=== PATIENT | female | born 1965 | race African-American/Black ===

== ENCOUNTER 2017-05-01 21:04 | Emergency (ER) | payer MEDICARE, OTHER ==
[2017-05-01 21:50] LABS: Bilirubin Negative (Negative); Blood, Urine Negative (Negative); Glucose, Urine (Dipstick) Negative (Negative); Ketone, Urine Negative (Negative); Nitrite Negative (Negative); Protein, Urine (Dipstick) Negative (Neg-Trace); Urobilinogen 0.2 mg/dL (0.2-1.0)
--- NOTE | 2017-05-01 22:12 | CT ---
CT OF HEAD NONCONTRAST 05/01/17 COMPARISON: 11/16/16 CLINICAL HISTORY: Dizziness. FINDINGS: There is no acute intracranial hemorrhage, mass effect, midline shift or ventriculomegaly. Imaged pa ranasal sinuses reveal no acute fluid level. There is chronic appearing dehiscence involving the med ial wall of the left orbit. No depressed calvarial fracture or pneumocephalus. IMPRESSION: No acute intracranial hemorrhage or mass effect. POS: [facility]
[2017-05-01 22:24] LABS: #Eosinphils 0.3 thou/uL (0.0-0.7); #Lymphocytes 2.2 thou/uL (1.20-3.40); #Monocytes 0.6 thou/uL (0.11-0.59); #Neutrophils 3.6 thou/uL (1.40-6.50); %Basophils 0.6 % (0.0-1.0); %Eosinophils 3.8 % (0.0-10.0); %Lymphocytes 32.6 % (21.0-51.0); %Monocytes 8.4 % (0.0-10.0); Hematocrit 42.3 % (36.0-47.0); Mean Platelet Volume 8.8 fL (7.4-10.4); Red Blood Cell (RBC) Count 4.64 mill/uL (4.20-5.40); White Blood Cell (WBC) Count 6.6 thou/uL (4.8-10.8)
[2017-05-01 22:41] LABS: Anion Gap 14 mmol/L (10-20); BUN (Urea Nitrogen) 10 mg/dL (7.0-18.7); Calc. Creatinine Clearance 0 mL/min (70-130); Calcium 10.1 mg/dL (7.8-10.44); Carbon Dioxide 21 mmol/L (22-29); Chloride 107 mmol/L (98-107); Estimated GFR-MDRD Greater than 90
[2017-05-01 22:48] LABS: Troponin I Less than 0.010 ng/mL (< 0.028)
== END 2017-05-01 23:40 | disposition home or self-care (01) ==
LOC: ERS 21:04
DX: R42 Dizziness and giddiness (principal); I10 Essential (primary) hypertension; J45.909 Unspecified asthma, uncomplicated; F31.9 Bipolar disorder, unspecified; F41.9 Anxiety disorder, unspecified; Z79.891 Long term (current) use of opiate analgesic; Z79.899 Other long term (current) drug therapy
CPT/HCPCS: 36415; 70450; 80048; 81003; 82553; 84484; 85025; 93005

== ENCOUNTER 2017-05-21 19:25 | Emergency (ER) | payer MEDICARE, OTHER | END 2017-05-21 20:25 | disposition home or self-care (01) | LOC: ERS 19:25 | DX: L25.3 Unspecified contact dermatitis due to other chemical products (principal); I10 Essential (primary) hypertension; J45.909 Unspecified asthma, uncomplicated; F41.9 Anxiety disorder, unspecified; F31.9 Bipolar disorder, unspecified; Z79.899 Other long term (current) drug therapy | CPT/HCPCS: 99282 ==

== ENCOUNTER 2017-06-16 22:06 | Emergency (ER) | payer MEDICARE, OTHER | END 2017-06-16 23:50 | disposition home or self-care (01) | LOC: ERS 22:06 | DX: B37.3 Candidiasis of vulva and vagina (principal); B37.2 Candidiasis of skin and nail; I10 Essential (primary) hypertension; J45.909 Unspecified asthma, uncomplicated; M19.90 Unspecified osteoarthritis, unspecified site; F31.9 Bipolar disorder, unspecified; F41.9 Anxiety disorder, unspecified | CPT/HCPCS: 99282 ==

== ENCOUNTER 2017-08-17 17:21 | Emergency (ER) | payer MEDICARE, OTHER ==
[2017-08-17 18:47] LABS: #Eosinphils 0.1 thou/uL (0.0-0.7); #Lymphocytes 0.8 thou/uL (1.20-3.40); #Monocytes 0.4 thou/uL (0.11-0.59); #Neutrophils 3.8 thou/uL (1.40-6.50); %Basophils 0.3 % (0.0-1.0); %Eosinophils 2.1 % (0.0-10.0); %Lymphocytes 16.1 % (21.0-51.0); %Monocytes 7.4 % (0.0-10.0); Hemoglobin 14.8 g/dL (12.0-16.0); Mean Corpuscular HGB CONC 32.3 g/dL (32.0-36.0); Mean Corpuscular Hemoglobin 29.5 pg (27.0-31.0); Mean Corpuscular Volume 91.4 fl (81.0-99.0); Platelet Count 217 thou/uL (130-400); RBC Distribution Width 12.2 % (11.5-14.5); Red Blood Cell (RBC) Count 5.01 mill/uL (4.20-5.40); White Blood Cell (WBC) Count 5.1 thou/uL (4.8-10.8)
--- NOTE | 2017-08-17 18:49 | RAD ---
TWO VIEW CHEST 08/17/16 HISTORY: Cough. Lungs appear clear. No infiltrate seen. Mild stranding of the left lower lung is stable from the 06/29 10/12 exam. Heart size is normal. IMPRESSION: No acute process identified. POS: [facility]
[2017-08-17 19:08] LABS: ALT (SGPT) 22 U/L (8-55); AST (SGOT) 23 U/L (5-34); Albumin 4.2 g/dL (3.5-5.0); Alkaline Phosphatase 107 U/L (40-150); Anion Gap 14 mmol/L (10-20); BUN (Urea Nitrogen) 6 mg/dL (9.8-20.1); Bilirubin, Total 0.4 mg/dL (0.2-1.2); Calc. Creatinine Clearance 0 mL/min (70-130); Calcium 10.5 mg/dL (7.8-10.44); Carbon Dioxide 23 mmol/L (22-29); Chloride 105 mmol/L (98-107); Estimated GFR-MDRD 90; Globulin 3.9 g/dL (2.4-3.5); Glucose 80 mg/dL (70-105); Protein, Total 8.1 g/dL (6.0-8.3); Sodium 138 mmol/L (136-145)
[2017-08-17] MEDS ORDERED: Ibuprofen 200 MG TAB ONE (20:28)
[2017-08-17] MEDS ORDERED: Dexamethasone 4 MG TAB ONE (20:53)
[2017-08-17] MEDS ORDERED: Acetaminophen 500 MG TAB ONE (21:51)
== END 2017-08-17 21:55 | disposition home or self-care (01) ==
LOC: ERS 17:21
DX: J45.901 Unspecified asthma with (acute) exacerbation (principal); I10 Essential (primary) hypertension; M19.90 Unspecified osteoarthritis, unspecified site; F41.9 Anxiety disorder, unspecified; F31.9 Bipolar disorder, unspecified
CPT/HCPCS: 36415; 71046; 80053; 85025; 94640; J7620; J8540

== ENCOUNTER 2017-08-18 09:09 | Inpatient (IN) | payer MEDICARE, OTHER ==
[2017-08-18 10:02] LABS: #Basophils 0.1 thou/uL (0.0-0.2); #Lymphocytes 0.3 thou/uL (1.20-3.40); #Neutrophils 4.3 thou/uL (1.40-6.50); %Basophils 2.2 % (0.0-1.0); %Monocytes 0.8 % (0.0-10.0); Hemoglobin 14.2 g/dL (12.0-16.0); Mean Corpuscular HGB CONC 32.9 g/dL (32.0-36.0); Mean Corpuscular Hemoglobin 29.9 pg (27.0-31.0); Mean Corpuscular Volume 90.9 fl (81.0-99.0); Mean Platelet Volume 9.1 fL (7.4-10.4); Platelet Count 222 thou/uL (130-400); RBC Distribution Width 12.2 % (11.5-14.5); Red Blood Cell (RBC) Count 4.74 mill/uL (4.20-5.40); White Blood Cell (WBC) Count 4.7 thou/uL (4.8-10.8)
[2017-08-18 10:21] LABS: Anion Gap 14 mmol/L (10-20); BUN (Urea Nitrogen) 7 mg/dL (9.8-20.1); Calc. Creatinine Clearance 0 mL/min (70-130); Calcium 10.5 mg/dL (7.8-10.44); Carbon Dioxide 20 mmol/L (22-29); Chloride 107 mmol/L (98-107); Estimated GFR-MDRD Greater than 90; Glucose 123 mg/dL (70-105); Potassium 3.5 mmol/L (3.5-5.1); Sodium 137 mmol/L (136-145)
[2017-08-18 10:27] LABS: CKMB 0.6 ng/mL (0-6.6); Troponin I Less than 0.010 ng/mL (< 0.028)
[2017-08-18] MEDS ORDERED: methylPREDNISolone Sod Succ/PF 125 MG/2 ML VIAL ONE (11:05)
[2017-08-18] MEDS ORDERED: Water For Inject, Bacteriostat 30 ML ONE (11:05)
[2017-08-18] MEDS ORDERED: Dexamethasone 10 MG/ML VIAL ONE (11:09)
[2017-08-18] MEDS ORDERED: cloNIDine 0.1 MG TAB ONE ×2 (11:27→11:30)
[2017-08-18] MEDS ORDERED: Aspirin 325 MG TAB ONE (12:58)
[2017-08-18] MEDS ORDERED: Nitroglycerin 0.4 MG TAB (25 Tab Bottle) ONE (12:58)
[2017-08-18 15:47] LABS: Troponin I 0.011 ng/mL (< 0.028)
[2017-08-18] MEDS ORDERED: Acetaminophen 325 MG TAB PO PRN (18:36)
[2017-08-18] MEDS ORDERED: ALPRAZolam 1 MG TAB PO PRN (18:36)
[2017-08-18] MEDS ORDERED: Ondansetron HCl/PF 4 MG/2 ML Vial IVP PRN (18:36)
[2017-08-18] MEDS ORDERED: Ondansetron ODT 4 MG TAB PO PRN (18:36)
[2017-08-18 18:45] LABS: Troponin I Less than 0.010 ng/mL (< 0.028)
[2017-08-18 19:07] VITALS: BMI 43.9
--- NOTE | 2017-08-18 19:24 | RAD ---
TWO VIEW CHEST: 08/18/17 HISTORY: Shortness of breath. Hypoxia. COMPARISON: 08/17/17. There is right lower lung infiltrate which has occurred since the prior study of yesterday. Possibly some left lower lobe atelectasis. Upper lung gunter remain clear. IMPRESSION: New right basilar atelectasis and/or infiltrate for which has occurred since yesterday's exam. POS: [facility]
[2017-08-18] MEDS ORDERED: cefTRIAXone\\ROCEPHIN 1 GM in Sodium Chloride 0.9% 100 ML IVPB SCH (19:45)
[2017-08-18] MEDS: Sodium Chloride 0.9% 1,000 ML IV SCH (21:17)
[2017-08-18] MEDS: cefTRIAXone\\ROCEPHIN 1 GM, Syringe 0.4 ML in Sterile Water 9.6 ML SLOW IVP SCH (21:18)
[2017-08-18] MEDS: cloNIDine 0.1 MG TAB PO SCH (21:19)
[2017-08-18] MEDS: busPIRone HCl 10 MG TAB PO SCH (21:19)
[2017-08-18] MEDS: Doxycycline 100 MG CAP PO SCH (21:20)
[2017-08-18] MEDS: Famotidine 20 MG TAB PO SCH (21:20)
[2017-08-18] MEDS: OLANZapine 5 MG TAB PO SCH (21:21)
[2017-08-18] MEDS: Oseltamivir 75 MG CAP PO SCH (21:21)
[2017-08-18] MEDS: OXcarbazepine 300 MG TAB PO SCH (21:22)
[2017-08-18] MEDS: Guaifenesin DM 100-10/5 ML UDCUP PO PRN (21:22)
[2017-08-18 21:26] LABS: Troponin I 0.017 ng/mL (< 0.028)
--- NOTE | 2017-08-18 22:14 | HP-2 ---
DATE OF SERVICE: 08/18/2017 DATE OF ADMISSION: 08/18/2017 LOCATION: [facility] in [place], [place]. CO-SIGNER: Delvis Dugan MD CODE STATUS: FULL. PRIMARY CARE PHYSICIAN: [facility]. ATTENDING PHYSICIAN: Dr. Delvis Dugan. RESIDENT PHYSICIAN: Cullen Blake DO HISTORIAN: History provided by the patient. CHIEF COMPLAINT: Shortness of breath and chest tightness. HISTORY OF PRESENT ILLNESS: A 52-year-old female with past medical history of asthma, who presents w ith 3 to 4 day history of increased shortness of breath and chest tightness with associated dry cough , nasal congestion, rhinorrhea, arthralgias, fever, chills, and ear pressure. She denies chest pain and increased swelling outside of her baseline. The patient reports prior asthma exacerbations and s tates this feels similar to those prior episodes. Additionally, she denies nausea, vomiting, diarrhe a, constipation. In the ER, the patient was given DuoNebs x2, Decadron 10 mg, methylprednisolone 125 , 0.4 mg Nitrostat, and 81 mg of aspirin. PAST MEDICAL HISTORY: 1. Asthma. 2. Hypertension. 3. Tachybrady syndrome. 4. Bipolar depression. PAST SURGICAL HISTORY: Denies. ALLERGIES: No known drug allergies. HOME MEDICATIONS: 1. Fluoxetine 20 mg daily. 2. Bystolic 10 mg daily. 3. Olanzapine 10 mg at bedtime. 4. Carbamazepine 300 mg at bedtime. 5. Alprazolam 1 mg daily. 6. Aspirin 81 mg daily. 7. Proventil 108 mcg per inhalation 2 puffs inhaled p.o. q.4-6 h. p.r.n. 8. Flonase Allergy Relief 1 spray in each nostril daily. 9. Ipratropium albuterol nebulizer every 6 hours as needed for shortness of breath and cough. 10. Losartan/hydrochlorothiazide 100/12.5 one tab by mouth daily. 11. BuSpar 10 mg t.i.d. 12. Clonidine 0.1 mg 1 tab p.o. b.i.d. FAMILY HISTORY: None. SOCIAL HISTORY: The patient is nonsmoker, nondrinker. Denies ill contacts. REVIEW OF SYSTEMS: General: Patient complains of fever, chills. Denies night sweats. Complains of fatigue. Eyes: Denies vision change. ENT: Complains of nasal congestion, rhinorrhea. Denies sor e throat. Respiratory: Complains of cough, congestion, shortness of breath. Denies exercise intole stephanie. Cardiovascular: Denies chest pain, palpitations, edema. GI: Denies nausea, vomiting, diarr hea, constipation, abdominal pain. Genitourinary: Denies dysuria. Skin: Denies rashes. Musculosk eletal: Complains of arthritis and arthralgias. Denies swelling. Neurologic: Denies weakness and syncope. Psychiatric: Complains of depression. PHYSICAL EXAMINATION: VITAL SIGNS: Blood pressure 136/98, pulse 114, respiration 22, T-max 99 degrees, pulse ox 95% on nancy m air, current weight 100 kilograms. GENERAL: The patient is alert, oriented, mildly distressed. Well-developed, obese, appropriately in teractive. HEENT: Eyes, pupils equal, round, reactive to light with accommodation. Extraocular muscles intact, conjunctival injection is present. ENT: TMs are pale without bulging or erythema. Oropharynx is within normal limits. NECK: Supple without lymphadenopathy. No thyromegaly noted. CARDIAC: Regular rate and rhythm. No murmurs, rubs or gallops. Radial pulse 2+. RESPIRATORY: Increased effort, no retractions. Lung exam revealed poor inspiration, expiratory whee zes, and scattered rhonchi. SKIN: Warm and dry. ABDOMEN: Soft, nontender, normoactive bowel sounds in all 4 quadrants. No masses, distention, or or ganomegaly. EXTREMITIES: No clubbing, cyanosis, or edema. MUSCULOSKELETAL: Structure within normal limits. Tone within normal limits. NEUROLOGIC: No focal deficits. PSYCHIATRIC: Appropriately reactive. LABORATORY DATA: White blood cell 4.7, hemoglobin 14.2, hematocrit 43.1, platelets 222. Sodium 137, potassium 3.5, magnesium 1.9, chloride 107, bicarbonate 20, BUN 7, creatinine 0.77, glucose 123, koby cium 10.5. Troponin I less than 0.010 initially, a 3-hour followup study for troponin was 0.011. BN P was 19.4. ASSESSMENT AND PLAN: 1. Acute hypoxic respiratory failure secondary to viral upper respiratory infection versus asthma ex acerbation. The patient will be admitted to telemetry and supplemental oxygen will be provided to ma intain saturations above 90%. The patient will be given DuoNebs q.4 h. schedule and albuterol to q.2 hours p.r.n. for wheezing, shortness of breath. We will repeat a flu swab and for now, the patient will be covered with empiric Tamiflu as we wait a flu test results. Patient was given 1 gram mag sul fate as well as guaifenesin p.r.n. for cough. Repeat cardiac enzymes and EKG. 2. Sepsis secondary to virus. Blood cultures are pending. Lactate pending. The patient was given normal saline 150 mL per hour. 3. Asthma, acute exacerbation. Patient was given DuoNebs q.4 h. schedule as well as albuterol q.2 h ours as needed. In addition 1 gram mag sulfate. Maintain oxygen saturations above 90%. 4. Hypertension. Resume home medications. 5. Bipolar depression. Resume home medication. 6. Prophylaxis. The patient was placed on Pepcid and Lovenox for gastrointestinal and deep venous t hrombosis prophylaxis respectively. 7. Diet: Heart healthy. DISPOSITION AND LENGTH OF HOSPITAL STAY: Greater than or equal 2 days. Patient in stable condition. Symptomatic medications will be provided. History and physical exam as well as management discussed with Dr. Delvis Dugan who agrees with the above history, physical exam, assessment and plan unless otherwise noted in her addendum.
[2017-08-18 22:57] LABS: Legionella Urinary Ag Negative (Negative); Strep pneumo Urine Ag NEGATIVE (NEGATIVE)
[2017-08-19] MEDS: Guaifenesin DM 100-10/5 ML UDCUP PO PRN (01:50)
[2017-08-19] MEDS ORDERED: Benzonatate 100 MG CAP PO PRN (05:01)
[2017-08-19] MEDS: Sodium Chloride 0.9% 1,000 ML IV SCH ×4 (05:24→21:40)
[2017-08-19 05:27] LABS: #Lymphocytes 0.8 thou/uL (1.20-3.40); #Monocytes 0.6 thou/uL (0.11-0.59); #Neutrophils 4.2 thou/uL (1.40-6.50); %Basophils 0.1 % (0.0-1.0); %Eosinophils 0.1 % (0.0-10.0); %Lymphocytes 14.3 % (21.0-51.0); %Monocytes 10.5 % (0.0-10.0); Hemoglobin 12.3 g/dL (12.0-16.0); Mean Corpuscular HGB CONC 32.1 g/dL (32.0-36.0); Mean Corpuscular Hemoglobin 29.5 pg (27.0-31.0); Mean Corpuscular Volume 91.8 fl (81.0-99.0); Mean Platelet Volume 9.7 fL (7.4-10.4); Platelet Count 189 thou/uL (130-400); RBC Distribution Width 12.4 % (11.5-14.5); Red Blood Cell (RBC) Count 4.17 mill/uL (4.20-5.40); White Blood Cell (WBC) Count 5.6 thou/uL (4.8-10.8)
[2017-08-19 05:42] LABS: Anion Gap 10 mmol/L (10-20); BUN (Urea Nitrogen) 9 mg/dL (9.8-20.1); Calc. Creatinine Clearance 154 mL/min (70-130); Calcium 9.5 mg/dL (7.8-10.44); Carbon Dioxide 22 mmol/L (22-29); Chloride 112 mmol/L (98-107); Estimated GFR-MDRD Greater than 90; Glucose 119 mg/dL (70-105); Potassium 3.8 mmol/L (3.5-5.1); Sodium 140 mmol/L (136-145)
[2017-08-19] MEDS: Losartan/Hydrochlorothiazide 100 mg/25 mg Tablet PO SCH (08:47)
[2017-08-19] MEDS: cloNIDine 0.1 MG TAB PO SCH ×2 (08:47→20:16)
[2017-08-19] MEDS: Aspirin 81 mg Enteric Coated Tablet PO SCH (08:47)
[2017-08-19] MEDS: Nebivolol HCl 5 MG TAB PO SCH (08:47)
[2017-08-19] MEDS: predniSONE 20 MG TAB PO SCH (08:47)
[2017-08-19] MEDS: Famotidine 20 MG TAB PO SCH ×2 (08:47→20:16)
[2017-08-19] MEDS: Oseltamivir 75 MG CAP PO SCH ×2 (08:47→20:16)
[2017-08-19] MEDS: Doxycycline 100 MG CAP PO SCH ×2 (08:47→20:15)
[2017-08-19] MEDS: busPIRone HCl 10 MG TAB PO SCH ×3 (08:48→20:15)
[2017-08-19] MEDS: FLUoxetine HCl 20 MG CAP PO SCH (08:48)
[2017-08-19] MEDS: Enoxaparin Sodium 40 MG/0.4 ML SYRINGE SC SCH (08:49)
[2017-08-19] MEDS: Phenergan/Codeine 10-6.25mg/5ml UDCUP PO PRN ×2 (10:26→20:16)
[2017-08-19] MEDS: Fluticasone Propionate Nasal Spray 16 gm Bottle NASAL SCH (10:27)
--- NOTE | 2017-08-19 10:39 | PDOC.FM ---
- Subjective Subjective: Pt reports improvement of SOB overnight, but persistent cough and chills. Denies CP, NVDC. - Objective Vital Signs & Weight: Vital Signs (12 hours) Temp Pulse Resp BP Pulse Ox 08/19/17 09:21 97 08/19/17 09:18 78 24 H 97 08/19/17 08:38 98.3 F 82 17 146/69 H 96 08/19/17 08:00 98.3 F 78 17 08/19/17 04:00 98.4 F 78 14 119/68 96 08/19/17 02:03 94 16 Weight Weight 105.46 kg I&O: 08/18/17 08/19/17 08/20/17 06:59 06:59 06:59 Intake Total 1281 Balance 1281 Result Diagrams: 08/19/17 04:59 08/19/17 04:59 Phys Exam - Physical Examination Constitutional: NAD HEENT: PERRLA, sclera anicteric Neck: no nodes, no JVD Respiratory: no rhonchi diminished bases, expiratory wheezes Cardiovascular: RRR, no significant murmur, no rub Gastrointestinal: soft, non-tender, no distention, positive bowel sounds Musculoskeletal: no edema, pulses present Neurological: non-focal, normal sensation, moves all 4 limbs Skin: no rash Dx/Plan (1) Acute respiratory failure with hypoxia Code(s): J96.01 - ACUTE RESPIRATORY FAILURE WITH HYPOXIA Status: Acute (2) Pneumonia Code(s): J18.9 - PNEUMONIA, UNSPECIFIED ORGANISM Status: Acute (3) Sepsis due to pneumonia Code(s): J18.9 - PNEUMONIA, UNSPECIFIED ORGANISM; A41.9 - SEPSIS, UNSPECIFIED ORGANISM Status: Resolved (4) Influenza A Code(s): J10.1 - FLU DUE TO OTH IDENT INFLUENZA VIRUS W OTH RESP MANIFEST Status: Acute (5) Asthma Code(s): J45.909 - UNSPECIFIED ASTHMA, UNCOMPLICATED Status: Acute (6) Bipolar depression Code(s): F31.30 - BIPOLAR DISORD, CRNT EPSD DEPRESS, MILD OR MOD SEVERT, UNSP Status: Acute - Plan Plan: sats over 90%, phenergan/codeine for cough, IV rocephin + oral doxy for rt lobar pna, tamiflu for flu A Oral steroids, duonebs, albuterol for acute asthma exacerbation home meds for htn and bipolar depression IVF NS @ 150mls/hr sepsis resolved, lactic acid down trended, blood cultures negative, continue IV abx and IVF
--- NOTE | 2017-08-19 15:25 | ADD-HP ---
ADDENDUM Please see the history and physical by Dr. Blake for which I concur. The patient was seen evaluated , examined, and discussed with resident upon bedside. HISTORY OF PRESENT ILLNESS: A 52-year-old female with asthma, who comes in with a c ouple day history of fever, increased coughing, and wheezing. I actually had two separate ER visits. Initial one, Flu test was negative, chest x-ray was normal, but then subsequently a day later, Flu A was positive and chest x-ray showed right lower lobe pneumonia. Now on Rocephin, doxycycline and T amiflu and according to the patient, she is doing better, fever is coming down, breathing a little bi t better, comfortable in nebulizers and prednisone. Past medical history, past surgical history, medications, allergies, review of systems, all per Dr. Blake's history and physical, for which I concur. PHYSICAL EXAMINATION: GENERAL: Just a low grade fever currently, no major respiratory distress, mentally seems fine, does not seem manic or hypomanic. HEENT: Moist mucosa. Conjunctivae pale. LUNGS: Chest is significant for crackles at the right base, but overall fairly good air movement, no t much wheezing going on. CARDIAC: Regular rate and rhythm. ABDOMEN: Benign. EXTREMITIES: Show no edema. X-RAY FINDINGS: Chest x-ray did show right lower lobe pneumonia. ASSESSMENT AND PLAN: 1. Pneumonia. Continue current IV antibiotics with doxycycline. 2. Asthma exacerbation. Continue nebulizers and steroids. 3. Flu, continue Tamiflu. 4. Bipolar disease and other medical conditions including hypertension. We will continue same home medications.
[2017-08-19] MEDS: cefTRIAXone\\ROCEPHIN 1 GM, Syringe 0.4 ML in Sterile Water 9.6 ML SLOW IVP SCH (20:14)
[2017-08-19] MEDS: OXcarbazepine 300 MG TAB PO SCH (20:16)
[2017-08-19] MEDS: OLANZapine 5 MG TAB PO SCH (20:16)
[2017-08-20] MEDS: Phenergan/Codeine 10-6.25mg/5ml UDCUP PO PRN ×3 (04:40→14:37)
[2017-08-20] MEDS: Sodium Chloride 0.9% 1,000 ML IV SCH (04:44)
[2017-08-20 05:43] LABS: Anion Gap 12 mmol/L (10-20); BUN (Urea Nitrogen) 6 mg/dL (9.8-20.1); Calc. Creatinine Clearance 156 mL/min (70-130); Calcium 9.2 mg/dL (7.8-10.44); Carbon Dioxide 20 mmol/L (22-29); Chloride 111 mmol/L (98-107); Estimated GFR-MDRD Greater than 90; Glucose 90 mg/dL (70-105); Potassium 3.3 mmol/L (3.5-5.1); Sodium 140 mmol/L (136-145)
[2017-08-20 06:26] LABS: Hemoglobin 12.5 g/dL (12.0-16.0); Mean Corpuscular HGB CONC 32.2 g/dL (32.0-36.0); Mean Corpuscular Hemoglobin 29.8 pg (27.0-31.0); Mean Corpuscular Volume 92.6 fl (81.0-99.0); Mean Platelet Volume 9.4 fL (7.4-10.4); Platelet Count 192 thou/uL (130-400); RBC Distribution Width 12.5 % (11.5-14.5); Red Blood Cell (RBC) Count 4.19 mill/uL (4.20-5.40); White Blood Cell (WBC) Count 3.6 thou/uL (4.8-10.8)
[2017-08-20 06:30] LABS: Band 4 % (5-11); Lymphocytes 33 % (21-51); MDiff Complete? YES; Monocytes 13 % (0-10); Neutrophil 50 % (42-75)
[2017-08-20] MEDS ORDERED: Potassium Chloride 20 MEQ TAB PO SCH (08:00)
[2017-08-20] MEDS: Fluticasone Propionate Nasal Spray 16 gm Bottle NASAL SCH (08:37)
[2017-08-20] MEDS: predniSONE 20 MG TAB PO SCH (08:38)
[2017-08-20] MEDS: Famotidine 20 MG TAB PO SCH (08:38)
[2017-08-20] MEDS: cloNIDine 0.1 MG TAB PO SCH (08:38)
[2017-08-20] MEDS: Doxycycline 100 MG CAP PO SCH (08:38)
[2017-08-20] MEDS: Aspirin 81 mg Enteric Coated Tablet PO SCH (08:38)
[2017-08-20] MEDS: Nebivolol HCl 5 MG TAB PO SCH (08:38)
[2017-08-20] MEDS: Losartan/Hydrochlorothiazide 100 mg/25 mg Tablet PO SCH (08:38)
[2017-08-20] MEDS: Enoxaparin Sodium 40 MG/0.4 ML SYRINGE SC SCH (08:39)
[2017-08-20] MEDS: FLUoxetine HCl 20 MG CAP PO SCH (08:39)
[2017-08-20] MEDS: Oseltamivir 75 MG CAP PO SCH (08:39)
[2017-08-20] MEDS: busPIRone HCl 10 MG TAB PO SCH ×2 (08:39→14:34)
--- NOTE | 2017-08-20 09:26 | PDOC.FM ---
- Subjective Subjective: No acute events overnight. Pt reports persistent cough and increased wheezing. Unable to produce sputum. Encouraged use of prn albuterol. Dneies CP, NVDC. Tolerating diet. Denies chills, fever. - Objective Vital Signs & Weight: Vital Signs (12 hours) Temp Pulse Resp BP BP Pulse Ox 08/20/17 08:38 132/66 08/20/17 08:00 98.5 F 80 16 92 L 08/20/17 07:51 98.5 F 80 16 132/66 92 L 08/20/17 03:26 98.0 F 103 H 20 131/66 97 08/20/17 02:19 90 16 97 08/19/17 22:23 94 18 96 Weight Weight 105.46 kg I&O: 08/19/17 08/20/17 08/21/17 06:59 06:59 06:59 Intake Total 1281 3880 Output Total 2425 Balance 1281 1455 Result Diagrams: 08/20/17 04:47 08/20/17 04:47 Phys Exam - Physical Examination Constitutional: NAD HEENT: PERRLA, sclera anicteric Neck: no nodes, no JVD Respiratory: wheezing present rhonchi, diffuse; inspiratory and expiratory wheezes present Cardiovascular: RRR, no significant murmur, no rub Gastrointestinal: soft, non-tender, no distention, positive bowel sounds Musculoskeletal: no edema, pulses present Neurological: non-focal, moves all 4 limbs Dx/Plan (1) Acute respiratory failure with hypoxia Code(s): J96.01 - ACUTE RESPIRATORY FAILURE WITH HYPOXIA Status: Acute (2) Pneumonia Code(s): J18.9 - PNEUMONIA, UNSPECIFIED ORGANISM Status: Acute (3) Sepsis due to pneumonia Code(s): J18.9 - PNEUMONIA, UNSPECIFIED ORGANISM; A41.9 - SEPSIS, UNSPECIFIED ORGANISM Status: Resolved (4) Influenza A Code(s): J10.1 - FLU DUE TO OTH IDENT INFLUENZA VIRUS W OTH RESP MANIFEST Status: Acute (5) Asthma Code(s): J45.909 - UNSPECIFIED ASTHMA, UNCOMPLICATED Status: Acute (6) Bipolar depression Code(s): F31.30 - BIPOLAR DISORD, CRNT EPSD DEPRESS, MILD OR MOD SEVERT, UNSP Status: Acute - Plan Plan: continue home medications for chronic conditions tamiflu for flu coverage titrate O2 to sats >90% albuterol prn and duonebs miguel daily prednisone will add expectorant for cough. Continue phenergan/codeine prn for cough
[2017-08-20] MEDS: Albuterol Sulfate 2.5 mg/3 ml Neb NEB PRN ×2 (11:36→14:39)
--- NOTE | 2017-08-20 12:19 | ADD-PRG ---
DATE OF SERVICE: 08/20/2017 This is an addendum to the note of Dr. Cullen Blake. Ms. Frias is a pleasant 52-year-old female patient who was admitted with shortness of breath and ches t tightness. She was subsequently found to have a right lower lobe infiltrate which was the likely c ause of her asthma exacerbation. Although still wheezing somewhat this morning she is much more comf ortable than on admission and is anxious to go home. We will continue with her DuoNebs and p.r.n. al buterol and recheck her again this afternoon. If she continues to feel well we can likely discharge her after altering her asthma treatments. She should likely be sent home on her rescue inhaler and i nhaled corticosteroid and I would also consider a long-acting beta agonist for the next 3 months. Cristela payne will also complete a 5 day course of prednisone. Clinically, this morning she is improved, althoug h still wheezing.
[2017-08-20 12:59] VITALS: BP 100/59; TEMP 98.7
[2017-08-20] MEDS ORDERED: Mometasone 100 MCG HFA INHALER INH SCH (18:30)
[2017-08-20] MEDS ORDERED: Budesonide 0.5 MG/2 ML NEB INH SCH (18:30)
--- NOTE | 2017-08-21 12:15 | DIS-2 ---
ADMISSION DATE: 08/18/2017 DISCHARGE DATE: 08/20/2017 LOCATION: [facility] in [place], [place]. RESIDENT PHYSICIAN: Dr. Cullen Blake. ADMITTING ATTENDING: Dr. Delvis Dugan. DISCHARGE ATTENDING: Dr. Josh Hill. CONSULTATIONS: None. PROCEDURES: Chest x-ray done on 08/18/2017 showed new right basilar atelectasis and/or infiltrate fo r which has occurred since prior exam. PRIMARY DIAGNOSIS: Acute hypoxic respiratory failure secondary to asthma versus influenza pneumonia. SECONDARY DIAGNOSES: 1. Asthma. 2. Influenza A. 3. Hypertension. 4. Bipolar depression. DISCHARGE MEDICATIONS: 1. Alprazolam 0.5 mg p.o. t.i.d. 2. Aspirin 81 mg p.o. daily. 3. Tessalon Perles 100 mg p.o. q.4 hours. 4. BuSpar 10 mg p.o. t.i.d. 5. Clonidine 0.1 mg p.o. b.i.d. 6. Doxycycline 100 mg p.o. b.i.d. 7. Fluconazole 100 mg p.o. daily. 8. Fluoxetine 20 mg p.o. daily. 9. Asmanex 1 puff b.i.d. 10. Bystolic 10 mg p.o. daily. 11. Tamiflu 75 mg p.o. b.i.d. 12. Trileptal 300 mg p.o. at bedtime. 13. Prednisone 40 mg p.o. daily. 14. Promethazine/codeine 6.25/5 p.o. q.6 hours. DISCONTINUED MEDICATIONS: None. HISTORY OF PRESENT ILLNESS/HOSPITAL COURSE: Patient is a 52-year-old female with a longstanding hist ory of asthma, who presented to the ED with a chief complaint of shortness of breath prior to being s een by the admitting team. Patient was in the ER, had a chest x-ray as well as influenza swab, which was negative at that time. Patient was sent home and returned the following day with increased shor tness of breath at which time, the patient was admitted secondary to a new oxygen requirement. On ad mission, chest x-ray was performed, which showed a new right lower lobe infiltrate. Patient was star luis manuel on antibiotics and a repeat influenza swab was performed, which was positive for flu A. Patient was started on Tamiflu at that point. She was given 40 mg prednisone as well as scheduled DuoNebs an d albuterol. Given the frequency, which the patient was using her home albuterol rescue inhaler, an inhaled corticosteroid was started. The patient was given Tessalon and Phenergan, codeine for contro l of the cough throughout her hospital stay. Throughout her stay, the patient did remain afebrile. She had occasional episodes of tachycardia, which subsequently trended down on next rechecks. Her ox ygen saturation remained at or above 95% on room air. Her blood pressure was normotensive throughout her stay. The patient was discharged home with instructions to follow up closely outpatient and to return to the ER with any signs of worsening shortness of breath, increased sputum production. DISPOSITION: The patient left the hospital in stable condition. DISCHARGE INSTRUCTIONS: 1. Location: Home. 2. Diet: Heart healthy. 3. Activity: Ad jerry. 4. Follow up with primary care provider in 7 to 10 days following discharge.
--- NOTE | 2017-09-01 13:41 | EKG ---
Test Reason : Blood Pressure : / mmHG Vent. Rate : 113 BPM Atrial Rate : 113 BPM P-R Int : 128 ms QRS Dur : 086 ms QT Int : 334 ms P-R-T Axes : 045 064 025 degrees QTc Int : 458 ms Sinus tachycardia Possible Left atrial enlargement Borderline ECG Confirmed by CHAU CARLOS ([id number]), photo editor LASHONDA GANDARA ([id number]) on 09/01/2017 1:40:42 PM Referred By: Confirmed By:CHAU CARLOS
== END 2017-08-20 16:43 | disposition home or self-care (01) | DRG 871 ==
LOC: ERS 09:09 → 2NO 12:40
PROVIDERS: ADMIT Family Medicine; ATTEND Family Medicine
DX: A41.9 Sepsis, unspecified organism (principal); J10.00 Influenza due to other identified influenza virus with unspecified type of pneumonia; J96.01 Acute respiratory failure with hypoxia; J45.901 Unspecified asthma with (acute) exacerbation; I49.5 Sick sinus syndrome; J18.9 Pneumonia, unspecified organism; F31.9 Bipolar disorder, unspecified; I10 Essential (primary) hypertension; Z79.82 Long term (current) use of aspirin; Z79.51 Long term (current) use of inhaled steroids; M19.90 Unspecified osteoarthritis, unspecified site; Z95.1 Presence of aortocoronary bypass graft
CPT/HCPCS: 36415; 71046; 80048; 80053; 82553; 83605; 83735; 83880; 84484; 85025; 85379; 87040; 87804; 87899; 93005; 94640; 94760; 96360; A4216; J0696; J1100; J1650; J2930; J3475; J7050; J7506; J7611; J7620; J8540

== ENCOUNTER 2017-09-14 00:44 | Emergency (ER) | payer MEDICARE, OTHER ==
[2017-09-14] MEDS ORDERED: Ibuprofen 200 MG TAB ONE (01:47)
[2017-09-14 01:50] LABS: #Basophils 0.1 thou/uL (0.0-0.2); #Lymphocytes 0.8 thou/uL (1.20-3.40); #Monocytes 0.9 thou/uL (0.11-0.59); #Neutrophils 7.8 thou/uL (1.40-6.50); %Basophils 0.7 % (0.0-1.0); %Eosinophils 0.3 % (0.0-10.0); %Lymphocytes 8.8 % (21.0-51.0); %Monocytes 8.9 % (0.0-10.0); %Neutrophils 81.2 % (42.0-75.0); Hemoglobin 13.3 g/dL (12.0-16.0); Mean Corpuscular HGB CONC 32.9 g/dL (32.0-36.0); Mean Corpuscular Hemoglobin 30.4 pg (27.0-31.0); Mean Corpuscular Volume 92.3 fl (81.0-99.0); Mean Platelet Volume 9.2 fL (7.4-10.4); Platelet Count 215 thou/uL (130-400); RBC Distribution Width 12.9 % (11.5-14.5); Red Blood Cell (RBC) Count 4.37 mill/uL (4.20-5.40); White Blood Cell (WBC) Count 9.6 thou/uL (4.8-10.8)
[2017-09-14 02:10] LABS: Anion Gap 11 mmol/L (10-20); BUN (Urea Nitrogen) 8 mg/dL (9.8-20.1); Calc. Creatinine Clearance 0 mL/min (70-130); Calcium 9.9 mg/dL (7.8-10.44); Carbon Dioxide 21 mmol/L (22-29); Chloride 106 mmol/L (98-107); Estimated GFR-MDRD Greater than 90; Glucose 101 mg/dL (70-105); Potassium 3.7 mmol/L (3.5-5.1); Sodium 134 mmol/L (136-145)
[2017-09-14] MEDS ORDERED: Lidocaine Viscous Sol 2% 15 ml UD Cup ONE (02:47)
[2017-09-14] MEDS ORDERED: predniSONE 20 MG TAB ONE (02:47)
--- NOTE | 2017-09-14 07:39 | RAD ---
PORTABLE CHEST 1 VIEW: DAET: 09/14/17. TIME: 1:38 a.m. HISTORY: Fever, cough. FINDINGS: Comparison is made with the exam of 08/26/17. The heart size is normal. The lungs are expanded without focal areas of consolidation, pneumothorax, or pleural effusions. IMPRESSION: No radiographic evidence of acute cardiopulmonary process. POS: [facility]
== END 2017-09-14 02:55 | disposition home or self-care (01) ==
LOC: ERS 00:44
DX: B34.9 Viral infection, unspecified (principal); J45.909 Unspecified asthma, uncomplicated; I10 Essential (primary) hypertension; F31.9 Bipolar disorder, unspecified; F41.9 Anxiety disorder, unspecified
CPT/HCPCS: 36415; 71045; 80048; 85025; 87081; 87430; 87804; J7506

== ENCOUNTER 2017-09-28 20:58 | Emergency (ER) | payer MEDICARE, OTHER ==
[2017-09-29] MEDS ORDERED: Ibuprofen 200 MG TAB ONE (13:57)
== END 2017-09-28 22:48 ==
LOC: ERS 20:58
DX: Z53.21 Procedure and treatment not carried out due to patient leaving prior to being seen by health care provider (principal)

== ENCOUNTER 2017-09-29 12:17 | Emergency (ER) | payer MEDICARE, OTHER | END 2017-09-29 14:42 | disposition home or self-care (01) | LOC: ERS 12:17 | DX: J02.9 Acute pharyngitis, unspecified (principal); I10 Essential (primary) hypertension; M19.90 Unspecified osteoarthritis, unspecified site; J45.909 Unspecified asthma, uncomplicated; F41.9 Anxiety disorder, unspecified; F31.9 Bipolar disorder, unspecified; Z79.899 Other long term (current) drug therapy | CPT/HCPCS: 87070; 87081; 87430; 99284 ==

== ENCOUNTER 2017-12-03 09:14 | Outpatient (CLI) | payer MEDICAID, MEDICARE ==
--- NOTE | 2017-12-03 11:01 | RAD ---
TWO VIEWS CHEST: Comparison: 09-14-17 History: Chest pain. Shortness of breath. FINDINGS: Two views of the chest shows normal sized cardiomediastinal silhouette. A cardiac monitoring device p rojects over the left chest wall. There is no evidence of consolidation, mass, or pleural effusions. Degenerative changes are seen in the spine. IMPRESSION: No evidence of acute cardiopulmonary disease. POS: [facility]
== END 2017-12-03 09:15 | disposition home or self-care (01) ==
LOC: RAD 09:14
PROVIDERS: ATTEND Internal Medicine Critical Care Medicine
DX: R06.00 Dyspnea, unspecified (principal)
CPT/HCPCS: 71046

== ENCOUNTER 2018-09-05 15:24 | Emergency (ER) | payer MEDICARE, OTHER ==
[2018-09-05] MEDS ORDERED: methylPREDNISolone Sod Succ/PF 125 MG/2 ML VIAL ONE (16:19)
[2018-09-05 16:45] LABS: #Basophils 0.1 thou/uL (0.0-0.2); #Eosinphils 0.1 thou/uL (0.0-0.7); #Lymphocytes 1.3 thou/uL (1.20-3.40); #Monocytes 0.5 thou/uL (0.11-0.59); #Neutrophils 3.6 thou/uL (1.40-6.50); %Basophils 0.9 % (0.0-1.0); %Eosinophils 1.9 % (0.0-10.0); %Lymphocytes 23.3 % (21.0-51.0); %Monocytes 9.4 % (0.0-10.0); %Neutrophils 64.4 % (42.0-75.0); Hemoglobin 14.6 g/dL (12.0-16.0); Mean Corpuscular HGB CONC 32.5 g/dL (32.0-36.0); Mean Corpuscular Hemoglobin 29.7 pg (27.0-31.0); Mean Corpuscular Volume 91.3 fL (78.0-98.0); Mean Platelet Volume 10.4 fL (7.4-10.4); Platelet Count 219 thou/uL (130-400); RBC Distribution Width 12.8 % (11.5-14.5); Red Blood Cell (RBC) Count 4.92 mill/uL (4.20-5.40); White Blood Cell (WBC) Count 5.6 thou/uL (4.8-10.8)
[2018-09-05] MEDS ORDERED: Ketorolac Tromethamine 30 MG/ML VIAL ONE (17:17)
--- NOTE | 2018-09-05 17:40 | RAD ---
TWO VIEWS CHEST: 09/05/18 HISTORY: Fever, cough. PA and lateral views of the chest is obtained. There is an implanted media monitor in place anterio r to the chest cavity. The lungs are well aerated. No evidence of active intrathoracic disease seen. No evidence of effusions, pneumonia, or pneumothorax seen. IMPRESSION: Unremarkable two views chest. POS: [facility]
[2018-09-05 17:46] LABS: Albumin 3.9 g/dL (3.5-5.0)
[2018-09-05 17:47] LABS: Chloride 108 mmol/L (98-107); Potassium 3.9 mmol/L (3.5-5.1); Sodium 139 mmol/L (136-145)
[2018-09-05 17:48] LABS: Calcium 10.3 mg/dL (7.8-10.44); Globulin 3.4 g/dL (2.4-3.5); Glucose 94 mg/dL (70-105); Protein, Total 7.3 g/dL (6.0-8.3)
[2018-09-05 17:50] LABS: Anion Gap 11 mmol/L (10-20); Bilirubin, Total 0.3 mg/dL (0.2-1.2); Carbon Dioxide 24 mmol/L (22-29)
[2018-09-05 17:51] LABS: Alkaline Phosphatase 118 U/L (40-150)
[2018-09-05 17:52] LABS: BUN (Urea Nitrogen) 12 mg/dL (9.8-20.1); Calc. Creatinine Clearance 0 mL/min (70-130); Estimated GFR-MDRD Greater than 90
[2018-09-05 17:53] LABS: AST (SGOT) 26 U/L (5-34)
[2018-09-05 17:54] LABS: ALT (SGPT) 26 U/L (8-55)
== END 2018-09-05 19:08 | disposition home or self-care (01) ==
LOC: ERS 15:24
DX: J45.901 Unspecified asthma with (acute) exacerbation (principal); B34.9 Viral infection, unspecified; I10 Essential (primary) hypertension; F41.9 Anxiety disorder, unspecified; F31.9 Bipolar disorder, unspecified; Z79.51 Long term (current) use of inhaled steroids; Z79.899 Other long term (current) drug therapy
CPT/HCPCS: 36415; 71046; 80053; 85025; 87804; 93005; 94640; 96374; 96375; J1885; J2930; J7620

== ENCOUNTER 2018-11-16 23:02 | Emergency (ER) | payer MEDICARE, OTHER | END 2018-11-16 23:29 | disposition home or self-care (01) | LOC: ERS 23:02 | DX: J32.1 Chronic frontal sinusitis (principal); I10 Essential (primary) hypertension; J45.909 Unspecified asthma, uncomplicated; F41.9 Anxiety disorder, unspecified; F31.9 Bipolar disorder, unspecified | CPT/HCPCS: 99282 ==

== ENCOUNTER 2018-12-02 19:27 | Emergency (ER) | payer MEDICARE, OTHER ==
[2018-12-02 19:57] LABS: Bilirubin Negative (Negative); Blood, Urine Small (Negative); Clarity TURBID (Clear); Glucose, Urine (Dipstick) Negative (Negative); Leukocyte Large (Negative); Nitrite Positive (Negative); Protein, Urine (Dipstick) Trace mg/dL (Neg-Trace); Specific Gravity, Urine 1.021 (1.002-1.036); Urobilinogen 0.2 mg/dL (0.2-1.0)
[2018-12-02 20:00] LABS: Bacteria/HPF 4+ HPF (None Seen); Hyaline Casts/LPF 0-3 HYALINE CAST LPF (0-3 Hyaline); Pathc Cast-AUWi Flag 0.81 (0-2.49); Squamous Epithelial 0-3 HPF (0-3)
[2018-12-02] MEDS ORDERED: Ketorolac Tromethamine 60 MG/2 ML VIAL ONE (21:28)
== END 2018-12-02 21:35 | disposition home or self-care (01) ==
LOC: ERS 19:27
DX: N39.0 Urinary tract infection, site not specified (principal); F31.9 Bipolar disorder, unspecified; F41.9 Anxiety disorder, unspecified; J45.909 Unspecified asthma, uncomplicated; I10 Essential (primary) hypertension; M19.90 Unspecified osteoarthritis, unspecified site; Z79.899 Other long term (current) drug therapy
CPT/HCPCS: 81003; 81015; 87077; 87086; 87186; 96372; J1885

== ENCOUNTER 2019-01-27 03:15 | Day surgery (SDC) | payer MEDICARE, OTHER ==
[2019-01-27] MEDS ORDERED: Ondansetron PF 4 MG/2 ML Vial ONE ×2 (03:47→16:20)
[2019-01-27] MEDS ORDERED: Lidocaine Viscous Sol 2% 15 ml UD Cup ONE (03:47)
[2019-01-27] MEDS ORDERED: Mag-Al 1200 mg/1200 mg/30 ML UDCUP ONE (03:47)
[2019-01-27] MEDS ORDERED: Pantoprazole 40 MG VIAL ONE (03:47)
[2019-01-27 04:05] LABS: #Eosinphils 0.4 thou/uL (0.0-0.7); #Lymphocytes 2.4 thou/uL (1.20-3.40); #Monocytes 0.8 thou/uL (0.11-0.59); #Neutrophils 3.2 thou/uL (1.40-6.50); %Basophils 0.7 % (0.0-1.0); %Eosinophils 5.3 % (0.0-10.0); %Lymphocytes 35.7 % (21.0-51.0); %Monocytes 11.4 % (0.0-10.0); Hemoglobin 13.9 g/dL (12.0-16.0); Mean Corpuscular Hemoglobin 29.9 pg (27.0-31.0); Mean Corpuscular Volume 90.7 fL (78.0-98.0); Mean Platelet Volume 9.4 fL (7.4-10.4); Platelet Count 242 thou/uL (130-400); RBC Distribution Width 12.9 % (11.5-14.5); Red Blood Cell (RBC) Count 4.64 mill/uL (4.20-5.40); White Blood Cell (WBC) Count 6.7 thou/uL (4.8-10.8)
[2019-01-27 04:06] LABS: Bilirubin Negative (Negative); Blood, Urine Negative (Negative); Clarity CLEAR (Clear); Glucose, Urine (Dipstick) Negative (Negative); Leukocyte Negative (Negative); Nitrite Negative (Negative); Protein, Urine (Dipstick) Negative (Neg-Trace); Urobilinogen 0.2 mg/dL (0.2-1.0)
[2019-01-27 04:26] LABS: ALT (SGPT) 15 U/L (8-55); AST (SGOT) 17 U/L (5-34); Alkaline Phosphatase 121 U/L (40-150); Anion Gap 13 mmol/L (10-20); BUN (Urea Nitrogen) 13 mg/dL (9.8-20.1); Bilirubin, Total 0.3 mg/dL (0.2-1.2); Calc. Creatinine Clearance 0 mL/min (70-130); Calcium 10.2 mg/dL (7.8-10.44); Carbon Dioxide 25 mmol/L (22-29); Chloride 106 mmol/L (98-107); Estimated GFR-MDRD 67; Globulin 3.6 g/dL (2.4-3.5); Glucose 93 mg/dL (70-105); Lipase 49 U/L (8-78); Potassium 3.7 mmol/L (3.5-5.1); Protein, Total 7.6 g/dL (6.0-8.3); Sodium 140 mmol/L (136-145)
[2019-01-27] MEDS ORDERED: Fentanyl 100 MCG/2 ML VIAL ONE ×3 (04:51→10:51)
--- NOTE | 2019-01-27 07:10 | ULT ---
RIGHT UPPER QUADRANT ULTRASOUND: Date: 01/27/19 INDICATION: Right upper quadrant abdominal pain. TECHNIQUE: Evangelista scale and color Doppler images were obtained of the right upper quadrant. FINDINGS: The gallbladder is mildly distended, measuring 11 cm in length. There is mild gallbladder wall thicke charbel measuring 2.8 mm. There are multiple shadowing stones within the gallbladder. No pericholecystic fluid is evident. There is report of a positive sonographic Ovalle's sign. Visualized aspects of the liver, pancreas, and right kidney are normal appearing. The common bile duct measures 4 mm, which is normal. The right kidney measures 10.3 x 4.3 x 5.3 cm. IMPRESSION: 1. Cholelithiasis with mild gallbladder wall thickening and report of a positive sonographic Ovalle' s sign is suspicious sonographically for acute calculus cholecystitis. Recommend correlation with the clinical examination. 2. No additional sonographic abnormality within the right upper quadrant. POS: [facility]
--- NOTE | 2019-01-27 07:37 | HP ---
HISTORY OF PRESENT ILLNESS: Ms. Frias is a 53-year-old morbidly obese woman, who presented to emergency department this morning with recurrent postprandial epigastric abdominal pain of 2 months' duration. The patient was awoken at approximately 0200 hours with severe epigastric right upper quadrant abdominal pain, which she rated at 10/10, associated with multiple episodes of nausea, but no emesis. The patient reports abdominal bloating over the last several days. Her last meal was dinner last night at approximately 2000 hours consisting of barbecue meat. She denies any diarrhea. She denies any fevers or chills. PAST MEDICAL HISTORY: Pertinent for morbid obesity, chronic depression, essential hypertension, asthma, and degenerative arthritic disease. PAST SURGICAL HISTORY: Pertinent for partial abdominal hysterectomy and implantable monitor implantation in December of 2014. SOCIAL HISTORY: The patient is and lives at home with her . She admits to occasional intake of ethanol in moderate amounts. She denies any cigarette smoking or illicit drug abuse. FAMILY HISTORY: Noncontributory for this patient's age. PRE-HOSPITAL MEDICATIONS: Includes; 1. Oxcarbazepine 300 mg p.o. daily. 2. Sucralfate 1 g q.i.d. 3. Bystolic 10 mg p.o. daily. ALLERGIES: THE PATIENT HAS NO KNOWN DRUG ALLERGIES. REVIEW OF SYSTEMS: Ten-point review of systems essentially unremarkable except as stated in past medical history and chief complaint. PHYSICAL EXAMINATION: GENERAL: This reveals a 53-year-old morbidly obese woman, who is otherwise coherent and interactive, appears stated age. The patient is alert and oriented x3. She appears to be in no significant acute distress at the time of my evaluation. VITAL SIGNS: Include blood pressure 132/83, pulse 104, respiratory rate is 18, temperature is 98.3 degrees Fahrenheit, and oxygen saturation is 97% on room air. HEENT: Reveals normocephalic and atraumatic. Her pupils are equal, round, and reactive to light and accommodation. Extraocular muscles are intact bilaterally. She has no scleral icterus present. HEART: Reveals regular rate with sinus tachycardia. No murmurs or gallops auscultated. LUNGS: Clear to auscultation bilaterally. Her breathing, regular and unlabored. ABDOMEN: Soft and obese. She has right upper quadrant tenderness to palpation. She has a positive Ovalle's sign. Liver and spleen otherwise nonpalpable below costal margin. EXTREMITIES: Reveal 2+ radial and pedal pulses bilaterally. No ankle edema is present. NEUROLOGIC: Reveals no focal deficits present. LABORATORY FINDINGS: Today includes a CBC with 6700 white blood cells, hemoglobin and hematocrit 13.9 and 42.1 respectively, and platelet count 242,000. Metabolic profile; sodium 140, potassium 3.7, chloride is 106, bicarb is 25, BUN 13, creatinine is 1.05, glucose 93, total bilirubin is 0.3, AST and ALT are normal at 17 and 15 respectively. Serum lipase is also normal at 49. I have personally reviewed the abdominal ultrasound, which reveals markedly distended gallbladder with large solitary stone impacted in the gallbladder neck. Common bile duct is normal for this patient's age at 4.3 mm in diameter. IMPRESSION: Acute cholecystitis with cholelithiasis. PLAN: Laparoscopic cholecystectomy. Above findings and plan discussed with the patient and her at bedside. I have advised the patient of the risks and benefits of the proposed surgery to include, but not limited to, bleeding, infection, injury to bile duct, or surrounding structures. The patient indicates understanding information I provided her today. I have answered her questions. The patient has granted consent for this admission and surgical intervention. Job ID: [id number]
[2019-01-27] MEDS ORDERED: Bupivacaine/Epinephrine 0.25% 30 ML VIAL ONE (07:51)
[2019-01-27] MEDS ORDERED: Famotidine/PF 20 mg/2ml Vial ONE (08:43)
[2019-01-27] MEDS ORDERED: Midazolam HCl 2 mg/2 ml Vial ONE (08:43)
--- NOTE | 2019-01-27 13:42 | OP ---
DATE OF PROCEDURE: 01/27/2019 PREOPERATIVE DIAGNOSES: Acute cholecystitis and cholelithiasis. POSTOPERATIVE DIAGNOSES: Acute cholecystitis and cholelithiasis. OPERATION PERFORMED: Laparoscopic cholecystectomy. ANESTHESIA: General endotracheal. ESTIMATED BLOOD LOSS: 10 mL. FLUIDS GIVEN: 1000 mL crystalloids. COUNTS: Sponge and instrument counts were verified as correct x2. COMPLICATIONS: None apparent at the time of operation. INDICATIONS FOR OPERATION: A 53-year-old morbidly obese woman, presented with recurrent epigastric right upper quadrant abdominal pain. Clinical radiographic examination was consistent with acute cholecystitis with cholelithiasis, for which the patient was brought to the operating room for cholecystectomy. Findings are consistent with a markedly distended gallbladder in the usual anatomic location partially encased by omental adhesions. DESCRIPTION OF PROCEDURE: Informed consent was obtained from the patient, who was brought to the operating room and placed in supine position. Following general anesthesia, abdomen was sterilely prepped and draped in usual fashion. The skin above the umbilicus was infiltrated with 0.25% Marcaine with epinephrine. A small curvilinear supraumbilical incision was made using 11 scalpel. Umbilical stalk grasped with Deysi and elevated. Veress needle was inserted through the incision and placed in the peritoneal cavity through which the abdomen was insufflated with 3 L of CO2 gas noting intraabdominal pressure of 2 mmHg. Following abdominal insufflation, Veress needle was removed and a 5 mm trocar introduced using a Visiport under laparoscopy. Laparoscopy confirmed proper placement of the port, no injuries to underlying structures. Additional laparoscopy reveals a distended gallbladder in the usual anatomic location partially encased by omental adhesions. Under laparoscopy, a 12 mm epigastric and two 5 mm right lateral subcostal ports were placed after the overlying skin were infiltrated with 0.25% Marcaine with epinephrine, appropriate incision was made. The patient was placed in a reverse Trendelenburg position, rotated to her left. I introduced a [place] dissector with cautery, using this took down the omental adhesions. Prestige grasper was then introduced through the right lateral subcostal port grasping the fundus of the gallbladder, which was elevated cephalad. A second Prestige grasper was introduced through the right medial subcostal port grasping the Chung pouch, which was retracted laterally. The cystic duct was carefully dissected free from surrounding structures at the triangle of Calot. The duct was divided between clips, applying 2 clips proximally and 1 clip at the junction of the cystic duct and gallbladder. Cystic artery dissected free from surrounding structures and divided between clips in a similar fashion. The gallbladder itself was removed from the liver bed using cautery with good hemostasis. The gallbladder was delivered of the abdominal cavity using an EndoCatch. Operative site was inspected for good hemostasis. Finding no other pathology, laparoscopy was terminated. Fascia of the epigastric port closed using 0 Vicryl suture and Endoclosure device under laparoscopy. The abdomen was desufflated and all ports and instruments were removed and accounted for. Skin incisions closed using 4-0 Monocryl suture in subcuticular fashion. Dermabond was applied over incisional closure. The patient tolerated the operation without any apparent complication and was returned to recovery room in satisfactory condition. Job ID: [id number]
[2019-01-27] MEDS ORDERED: Rocuronium Bromide 10 MG/ML (10ML VIAL) ONE (16:20)
[2019-01-27] MEDS ORDERED: PROPOFOL 200 MG/20 ML VIAL ONE (16:20)
[2019-01-27] MEDS ORDERED: Glycopyrrolate 0.2 MG/ML 5 ML SYRINGE ONE (16:20)
[2019-01-27] MEDS ORDERED: Ketorolac Tromethamine 30 MG/ML VIAL ONE (16:20)
[2019-01-27] MEDS ORDERED: Dexamethasone 20 MG/5 ML VIAL ONE (16:20)
[2019-01-27] MEDS ORDERED: Lidocaine 1% PF 5 ML VIAL ONE (16:20)
== END 2019-01-27 13:20 | disposition home or self-care (01) ==
LOC: ERS 03:15 → SDC 07:14
PROVIDERS: ATTEND Surgery
PROC: 0FT44ZZ Resection of Gallbladder, Percutaneous Endoscopic Approach (ICD-10-PCS; principal; 2019-01-27)
DX: K80.12 Calculus of gallbladder with acute and chronic cholecystitis without obstruction (principal); K66.0 Peritoneal adhesions (postprocedural) (postinfection); E66.01 Morbid (severe) obesity due to excess calories; F31.9 Bipolar disorder, unspecified; I10 Essential (primary) hypertension; J45.909 Unspecified asthma, uncomplicated; M19.90 Unspecified osteoarthritis, unspecified site; F41.9 Anxiety disorder, unspecified; Z68.41 Body mass index [BMI] 40.0-44.9, adult; Z91.048 Other nonmedicinal substance allergy status; Z79.899 Other long term (current) drug therapy
CPT/HCPCS: 76705; 80053; 81003; 83690; 84484; 85025; 88304; 93005; C9113; J0131; J0690; J1100; J1885; J2001; J2250; J2405; J2704; J3010; S0028

== ENCOUNTER 2019-02-25 10:14 | Emergency (ER) | payer MEDICARE, OTHER ==
[2019-02-25] MEDS ORDERED: Ondansetron ODT 4 MG TAB ONE (11:17)
[2019-02-25 11:35] LABS: #Eosinphils 0.1 thou/uL (0.0-0.7); #Lymphocytes 1.3 thou/uL (1.20-3.40); #Monocytes 0.5 thou/uL (0.11-0.59); #Neutrophils 4.2 thou/uL (1.40-6.50); %Basophils 0.6 % (0.0-1.0); %Eosinophils 2.3 % (0.0-10.0); %Monocytes 8.3 % (0.0-10.0); %Neutrophils 67.8 % (42.0-75.0); Hemoglobin 14.5 g/dL (12.0-16.0); Mean Corpuscular Hemoglobin 29.4 pg (27.0-31.0); Mean Corpuscular Volume 88.9 fL (78.0-98.0); Mean Platelet Volume 10.8 fL (7.4-10.4); Platelet Count 235 thou/uL (130-400); RBC Distribution Width 13.3 % (11.5-14.5); Red Blood Cell (RBC) Count 4.95 mill/uL (4.20-5.40); White Blood Cell (WBC) Count 6.2 thou/uL (4.8-10.8)
[2019-02-25] MEDS ORDERED: Famotidine 20 MG TAB ONE (11:37)
[2019-02-25 11:50] LABS: ALT (SGPT) 33 U/L (8-55); AST (SGOT) 30 U/L (5-34); Albumin 4.3 g/dL (3.5-5.0); Alkaline Phosphatase 137 U/L (40-150); Anion Gap 12 mmol/L (10-20); BUN (Urea Nitrogen) 8 mg/dL (9.8-20.1); Bilirubin, Total 0.4 mg/dL (0.2-1.2); Calc. Creatinine Clearance 0 mL/min (70-130); Calcium 10.6 mg/dL (7.8-10.44); Carbon Dioxide 28 mmol/L (22-29); Chloride 105 mmol/L (98-107); Estimated GFR-MDRD 89; Globulin 3.8 g/dL (2.4-3.5); Glucose 89 mg/dL (70-105); Lipase 62 U/L (8-78); Potassium 3.7 mmol/L (3.5-5.1); Protein, Total 8.1 g/dL (6.0-8.3); Sodium 141 mmol/L (136-145)
== END 2019-02-25 12:20 | disposition home or self-care (01) ==
LOC: SCSER 10:14
DX: K21.9 Gastro-esophageal reflux disease without esophagitis (principal); I10 Essential (primary) hypertension; M19.90 Unspecified osteoarthritis, unspecified site; J45.909 Unspecified asthma, uncomplicated; F41.9 Anxiety disorder, unspecified; F31.9 Bipolar disorder, unspecified; Z79.899 Other long term (current) drug therapy
CPT/HCPCS: 36415; 80053; 83690; 84484; 85025; 93005; Q0162

== ENCOUNTER 2019-05-16 18:42 | Emergency (ER) | payer BC, OTHER | END 2019-05-16 19:54 | disposition home or self-care (01) | LOC: ERS 18:42 | DX: L29.9 Pruritus, unspecified (principal); I10 Essential (primary) hypertension; M19.90 Unspecified osteoarthritis, unspecified site; J45.909 Unspecified asthma, uncomplicated; F41.9 Anxiety disorder, unspecified; F31.9 Bipolar disorder, unspecified; Z79.899 Other long term (current) drug therapy | CPT/HCPCS: 99281 ==

== ENCOUNTER 2019-09-05 08:24 | Emergency (ER) | payer MEDICARE, OTHER ==
[2019-09-05] MEDS ORDERED: Ibuprofen 800 MG TAB ONE (09:54)
== END 2019-09-05 10:31 | disposition home or self-care (01) ==
LOC: ERS 08:24
DX: J11.1 Influenza due to unidentified influenza virus with other respiratory manifestations (principal); I10 Essential (primary) hypertension; J45.909 Unspecified asthma, uncomplicated; M19.90 Unspecified osteoarthritis, unspecified site; F41.9 Anxiety disorder, unspecified; F31.9 Bipolar disorder, unspecified
CPT/HCPCS: 36415; 80053; 80061; 87804; 99283

== ENCOUNTER 2020-12-12 10:07 | Emergency (ER) | payer MEDICARE, OTHER ==
[2020-12-12] MEDS ORDERED: Dexamethasone 10 MG/ML VIAL ONE (10:33)
== END 2020-12-12 10:36 | disposition home or self-care (01) ==
LOC: ERS 10:07
DX: J01.90 Acute sinusitis, unspecified (principal); I10 Essential (primary) hypertension; M19.90 Unspecified osteoarthritis, unspecified site; J45.909 Unspecified asthma, uncomplicated; Z79.899 Other long term (current) drug therapy
CPT/HCPCS: 99283; J1100

== ENCOUNTER 2021-12-21 16:00 | Emergency (ER) | payer OTHER | END 2021-12-21 16:45 | disposition home or self-care (01) | LOC: ERS 16:00 | DX: J45.901 Unspecified asthma with (acute) exacerbation (principal); I10 Essential (primary) hypertension; Z79.899 Other long term (current) drug therapy | CPT/HCPCS: 71045; 94640 ==